=== PATIENT | female | born 1980 | race Caucasian/White ===

== ENCOUNTER → 2022-06-11 | Outpatient (CLI) | payer MEDICAID ==
[2022-06-11 17:20] LABS: Basophils # (A) 0.07 X 10*3/uL (0.00-0.10); Basophils % (A) 0.6 %; Eosinophils # (A) 0.36 X 10*3/uL (0.04-0.35); Eosinophils % (A) 3.3 %; HCT 39.8 % (37.2-46.3); HGB 12.8 g/dL (12.0-15.0); Immature Grans, Automated 0.4 %; Lymphocytes # (A) 2.76 X 10*3/uL (0.90-5.00); Lymphocytes % (A) 25.1 %; MCH 26.9 pg (27.0-32.0); MCHC 32.2 g/dL (32.0-37.0); MCV 83.8 fL (80.0-97.0); Mean Platelet Volume 9.8 fL (9.5-12.2); Monocytes # (A) 0.62 X 10*3/uL (0.20-1.00); Monocytes % (A) 5.6 %; NRBC Per 100 WBC 0 /100 WBCS (0.0-0.0); Neutrophils # (A) 7.15 X 10*3/uL (1.80-7.70); Platelet Count 441 X 10*3/uL (140-440); RBC 4.75 X 10*6/uL (4.10-5.20); RDW 14.5 % (11.5-14.5)
[2022-06-11 19:15] LABS: ALT 15 U/L (8-44); AST 17 U/L (13-35); African American GFR (CKD) 110.2 (60.0-200.0); Albumin 4.5 g/dL (3.8-4.9); Albumin/Globulin Ratio 1.71 (1.60-3.17); Alkaline Phosphatase 111 U/L (41-126); BUN/Creat Ratio 15.64 Ratio (12.00-20.00); Blood Urea Nitrogen 12.2 mg/dL (9.0-27.0); Calcium 9.4 mg/dL (8.7-10.3); Carbon Dioxide 24.4 mmol/L (20.0-27.5); Chloride 101 mmol/L (96-109); Chol/HDL Ratio 2.99 Ratio; Globulin 2.7 g/dL (1.6-3.3); Glucose 90 mg/dL (70-110); LDL Cholesterol,Calculated 129.3 mg/dL (0.0-131.0); Non-African American GFR(CKD) 95.1 (60.0-200.0); Potassium 3.7 mmol/L (3.5-5.5); Sodium 139 mmol/L (135-145); Total Protein 7.2 g/dL (6.2-8.2); VLDL Calculation 15.24 mg/dL (5.00-40.00)
== END | disposition home or self-care (01) ==
LOC: LABWHC1 11:28
PROVIDERS: ATTEND Family Medicine
DX: Z00.00 Encounter for general adult medical examination without abnormal findings (principal); R63.5 Abnormal weight gain; R73.09 Other abnormal glucose; R53.83 Other fatigue
CPT/HCPCS: 36415; 80053; 80061; 83036; 84443; 85025

== ENCOUNTER → 2023-02-16 | Outpatient (CLI) | payer MEDICAID ==
--- NOTE | 2023-02-21 07:22 | MM ---
Reason for Exam: Screening (asymptomatic). Last mammogram was performed 6 year(s) and 3 month(s) ago. Patient History: Menarche at age 12. First Full-Term at age 19. Hysterectomy at age 34. Patient has history of breast feeding. Risk Values: Iram 5 year model risk: 0.5%. NCI Lifetime model risk: 8.0%. Prior Study Comparison: 11/15/2016 Bilateral Screening Mammogram, Howard Haque. 11/15/2016 Right US breast limited RT, Howard Haque. Tissue Density: The breast tissue is heterogeneously dense. This may lower the sensitivity of mammography. Findings: Analyzed By CAD. There is no suspicious group of microcalcifications or new suspicious mass in either breast. Overall Assessment: Negative, BI-RAD 1 Management: Screening Mammogram of both breasts in 1 year. A clinical breast exam by your physician is recommended on an annual basis and results should be correlated with mammographic findings. Electronically signed and approved by: Quentin Enriquez M.D. [facility]iolog[facility]
== END | disposition home or self-care (01) ==
LOC: RADMAMWWP 08:00
PROVIDERS: ATTEND Family Medicine
DX: Z12.31 Encounter for screening mammogram for malignant neoplasm of breast (principal)
CPT/HCPCS: 77063; 77067